=== PATIENT | female | born 1965 | race Caucasian/White ===

== ENCOUNTER 2025-07-08 05:51 | Inpatient (IN) ==
--- NOTE | 2025-06-19 14:01 | PAT Medication Instructions ---
Medication Instructions Date of Service June 19, 2025 Home Medications Medication Instructions Recorded fluconazole 150 mg tablet 150 mg PO Q3D 3 doses #3 tabs 06/12/25 cyanocobalamin (vitamin B-12) 50 mcg tablet 50 mcg PO QAM ibuprofen 200 mg tablet 800 mg PO QAM Pain magnesium 250 mg tablet 250 mg PO DAILY Women's 50 Plus Multivitamin 1 tab PO QAM semaglutide 1 mg/dose (4 mg/3 mL) subcutaneous pen injector 0.5 mg subcut Q7D zinc 100 mg tablet 100 mg PO QAM atorvastatin 40 mg tablet 40 mg PO DAILY fluconazole 150 mg tablet 150 mg PO Q3D 3 doses Essential Enzyme 2 - 3 tab PO QAM Oregano-Flax Seed Tincture 1 tsp PO QAM cholecalciferol (vitamin D3) 125 mcg (5,000 unit) tablet (Vitamin D3) 125 mcg PO QAM losartan 50 mg tablet 50 mg PO QAM ondansetron 4 mg disintegrating tablet 4 mg PO Q8H PRN Nausea Continue as directed fluconazole 150 mg tablet 150 mg PO Q3D 3 doses ASK your surgeon for instructions ibuprofen 200 mg tablet 800 mg PO QAM Pain STOP 7 days prior to surgery semaglutide 1 mg/dose (4 mg/3 mL) subcutaneous pen injector 0.5 mg subcut Q7D STOP taking 2 weeks before surgery (or as soon as possible if surgery is within 2 weeks) Essential Enzyme 2 - 3 tab PO QAM Oregano-Flax Seed Tincture 1 tsp PO QAM DO NOT take the morning of surgery cyanocobalamin (vitamin B-12) 50 mcg tablet 50 mcg PO QAM magnesium 250 mg tablet 250 mg PO DAILY Women's 50 Plus Multivitamin 1 tab PO QAM zinc 100 mg tablet 100 mg PO QAM cholecalciferol (vitamin D3) 125 mcg (5,000 unit) tablet (Vitamin D3) 125 mcg PO QAM losartan 50 mg tablet 50 mg PO QAM Take morning of surgery With a small sip of water, OTHERWISE NOTHING TO EAT OR DRINK AFTER MIDNIGHT: atorvastatin 40 mg tablet 40 mg PO DAILY ondansetron 4 mg disintegrating tablet 4 mg PO Q8H PRN Nausea (if needed) Take evening before surgery ondansetron 4 mg disintegrating tablet 4 mg PO Q8H PRN Nausea (if needed) Other Notes If you have any questions please call us at [phone] or [phone] or [phone] or [phone]
--- NOTE | 2025-06-24 11:11 | Anesthesiology Consultation ---
Date of Service June 24, 2025 Assessment & Plan (1) Encounter for pre-operative examination: - Infectious disease screening: Per assessment on 06/24/25- No known recent infectious disease contacts or current infectious disease symptoms. - GLP-1 medication instructions: Patient informed by PAT to stop 7 days prior to surgery- voiced understanding. DOS 07/08. Advised last dose to be 07/01. - S/P Removal of sacral neuromodulator device (02/26/25): MAC at [facility]. No issues noted per post-op anesthesia progress note. - Acceptable risk for surgery pending surgeon-ordered PCP preop evaluation (SREEKANTHG, appt 07/02). Chart Review Chart Review: Patient seen in Pre Admission Testing Teaching & Discussion Pre-Anesthesia Teaching/Discussion Notes: Instructed NPO after midnight before surgery,except medications with 15 cc of water. Medication instructions provided according to the PAT guidelines. History Surgery Operation Date: 07/08/25 07:45 Proposed Procedures p L2-L3 Decompression and Fusion Connecting to Previous Hardware - Brian Gray DO Height/Weight Height: 5 ft 4 in Weight: 74.6 kg Allergies Allergy/AdvReac Type Severity Reaction Status Date / Time morphine Allergy Severe Vomiting Verified 06/13/25 08:15 Sulfa (Sulfonamide Allergy Unknown Unknown Verified 06/13/25 08:15 Antibiotics) Medications Home Medications Medication Instructions Recorded Confirmed Last Taken cyanocobalamin (vitamin B-12) 50 50 mcg PO QAM 01/18/25 06/13/25 02/25/25 08:00 mcg tablet ibuprofen 200 mg tablet 800 mg PO QAM Pain 01/18/25 06/13/25 02/25/25 08:00 magnesium 250 mg tablet 250 mg PO DAILY 01/18/25 06/13/25 02/26/25 08:00 xxkmefic-wpv-eovxi ac 400 1 tab PO QAM 01/18/25 06/13/25 02/25/25 08:00 mcg-calcium carb 500 mg-vit K1 20 mcg tablet (Women's 50 Plus Multivitamin) semaglutide 1 mg/dose (4 mg/3 mL) 0.5 mg subcut Q7D 01/18/25 06/13/25 02/19/25 08:00 subcutaneous pen injector zinc 100 mg tablet 100 mg PO QAM 01/18/25 06/13/25 02/25/25 08:00 atorvastatin 40 mg tablet 40 mg PO DAILY 03/18/25 06/13/25 Unknown fluconazole 150 mg tablet 150 mg PO Q3D 3 doses #3 tabs 06/12/25 06/13/25 Unknown Essential Enzyme 2 - 3 tab PO QAM 06/13/25 06/13/25 Unknown Oregano-Flax Seed Tincture 1 tsp PO QAM 06/13/25 06/13/25 Unknown cholecalciferol (vitamin D3) 125 125 mcg PO QAM 06/13/25 06/13/25 Unknown mcg (5,000 unit) tablet (Vitamin D3) losartan 50 mg tablet 50 mg PO QAM 06/13/25 06/13/25 Unknown ondansetron 4 mg disintegrating 4 mg PO Q8H PRN Nausea 06/13/25 06/13/25 Unknown tablet Past Medical History Medical History (Updated 06/24/25 @ 12:45 by Frieda Francois) Anxiety attack Hx, Rare episodes Chronic back pain Chronic eczematoid otitis externa of both ears Follows with ENT; "no recent issues" Chronic neck pain Dyslipidemia History of neuropathy History of right shoulder fracture 05/2024, was thought to be healed but patient states she was notified 12/2024 at ortho visit that there might be residual fracture injury but no plan for upcoming surgical intervention; medically managing HLD (hyperlipidemia) HTN (hypertension) Lumbar spinal stenosis Transient visual loss of right eye Intermittent episodes since Spring 2024 Per [place] PCP visit 03/2025- "No obvious cause of her visual complaints has been identified yet. She reports ophthalmology evaluation is negative. Carotid artery ultrasound negative. Brain MRI negative. I do not have a good explanation for her transient visual complaints. Will refer to neurology patient request." [place] Neuro visit scheduled 07/2025. Urinary incontinence Vertigo Exercise / Class Metabolic Activity III < 4 Walking/Shop/Light housework Past Family History Family History Denies family history of Ovarian cancer Prostate cancer Myocardial infarction Breast cancer Colorectal cancer Past Surgical History Surgical History H/O neck surgery x2, C1-4 > C1-C7 Most recent surgery ~2006 H/O wrist surgery Left, "only had to have a temporary pin for 6 days" History of anesthesia reaction "Woke up during every surgery" except more recent anesthesia/surgery when hx was known Tried to remove ET tube during surgery once History of back surgery L1-L4 hardware, most recent surgery 2016 History of colonoscopy with polypectomy History of surgery Removal of sacral neuromodular device 02/26/25: MAC at [facility] Hx of eye surgery Right Hx of hernia repair x2 Status post cholecystectomy Status post insertion of nerve stimulator + subsequent removal Status post right foot surgery Past Anesthesia History No Family Hx of Anesthesia Complications and Other ("Woke up during every surgery" except more recent anesthesia/surgery when hx was known; Tried to remove ET tube during surgery once) History of PONV No Hx of PONV and No Hx of Motion Sickness Social History Smoking Status: Current every day smoker Smoking cigarettes per day: Vapes daily; no cigs Do You Dip or Chew Tobacco: No Hx Alcohol Use: Yes alcohol intake frequency: holidays/special occasions only Hx Substance Use: Yes substance use type: marijuana (medical card; occasional gummy very) and crack/cocaine ("many years ago, cocaine"; has med card-uses occasionally) Review of Systems Patient denies chest pain, shortness of breath, dyspnea on exertion, fever, chills, cough, wheezing, palpitations. Physical Exam Vital Signs BP 152/94 P 73 TEMP 98.1 SP02 98%RA RESP 16 Physical Full cervical extension range of motion. Full TMJ range of motion. TMD > 3.5 finger breaths Mallampati Score I Dentition: upper front (right) implant, + side cap, missing left upper side Lungs: clear throughout to auscultation Cardiac: regular rate and rhythm, no murmurs noted Spine: normal Carotid arteries: negative bruit Extremities: no LE edema Lab Results Anesthesia Preop Results Results Anesthesia Widget: WBC 8.91 K/ul (4.8-10.8) 06/24/25 Hgb 13.6 g/dl (12.0-16.0) 06/24/25 Hct 41.4 % (37.0-47.0) 06/24/25 Plt 492 K/uL (130-400) H 06/24/25 Na 139 mmol/L (136-145) 06/24/25 K 4.2 mmol/L (3.5-5.1) 06/24/25 Cl 104 mmol/L (98-107) 06/24/25 CO2 26 mmol/L (21-32) 06/24/25 BUN 16 mg/dl (6-23) 06/24/25 Creat 0.65 mg/dl (0.6-1.2) 06/24/25 Glucose Level 92 mg/dl (70-99(Fasting)) 06/24/25 PT 10.3 Seconds (9.0-12.0) 06/24/25 PTT 25 Seconds (21-31) 06/24/25 INR 1.0 (0.9-1.1) 06/24/25 Urine Color Yellow 06/24/25 Urine Appearance Clear (Clear) 06/24/25 Urine pH 5.5 (4.5-7.5) 06/24/25 Urine Specific Norris 1.024 (1.000-1.030) 06/24/25 Urine Protein 1+ (Negative) H 06/24/25 Urine Glucose (UA) Negative (Negative) 06/24/25 Urine Ketones Negative (Negative) 06/24/25 Urine Blood 2+ (Negative) H 06/24/25 Urine Nitrite Negative (Negative) 06/24/25 Urine Bilirubin Negative (Negative) 06/24/25 Urine Urobilinogen Negative (Negative) 06/24/25 Urine Leukocyte Esterase Negative (Negative) 06/24/25 Urine WBC (Auto) 0-5 /hpf (0-5) 06/24/25 Urine RBC (Auto) 3-5 /hpf (0-2) H 06/24/25 Urine Hyaline Casts (Auto) 0-2 /lpf (0-2) 06/24/25 Urine Epithelial Cells (Auto) 0-2 /hpf (0-2) 06/24/25 Urine Bacteria (Auto) None Seen (None Seen) 06/24/25 Blood Type O Positive 06/24/25 Antibody Screen NEGATIVE 06/24/25 Testing Laboratory Results Urine culture 06/12/25: Probable skin dipak Electrocardiogram Date: 02/26/25 NSR at 65bpm. Possible LAE. Chest X-Ray Date: 02/13/25 FINDINGS: Heart size and pulmonary vasculature are normal. No consolidation or pleural effusion. There is cervical spine metallic fusion. IMPRESSION: No acute findings. Other Testing Carotid doppler Date: 01/08/25 IMPRESSION: 1. No hemodynamically significant stenosis or significant atherosclerotic plaquing. 2. Normal antegrade vertebral flow bilaterally. Brain MRI Date: 04/18/25 IMPRESSION: No acute intracranial abnormality is identified.
[2025-07-08] MEDS: CeleBREX 200 MG CAP PO SCH (06:25)
[2025-07-08] MEDS: GABAPENTIN 600 MG DOSE PO SCH (06:26)
[2025-07-08] MEDS: ACETAMINOPHEN 500 MG TAB PO SCH (06:26)
[2025-07-08] MEDS: LR 15ML/HR IV SCH (06:27)
[2025-07-08] MEDS ORDERED: DEXAMETHASONE SOD INJ 4 MG/ML VIAL ONE (06:57)
[2025-07-08] MEDS ORDERED: ONDANSETRON INJ 2 MG/ML 2 ML VIAL IV PRN (06:58)
[2025-07-08] MEDS ORDERED: HYDROmorphone INJ 1 MG/ML SYRINGE IV PRN (06:58)
[2025-07-08] MEDS ORDERED: KETAMINE HCL 10MG/ML SYR ONE (06:58)
[2025-07-08] MEDS ORDERED: MIDAZOLAM HCL 1 MG/ML 2ML VIAL ONE (06:58)
[2025-07-08] MEDS ORDERED: PROPOFOL IV EMULSION 10 MG/ML 20 ML VIAL IV ONE (06:58)
[2025-07-08] MEDS ORDERED: ROCURONIUM BROMIDE 10 MG/ML 5 ML VIAL IV ONE (06:58)
[2025-07-08] MEDS ORDERED: ONDANSETRON INJ 2 MG/ML 2 ML VIAL ONE (06:58)
[2025-07-08] MEDS ORDERED: LIDOCAINE 2% 2 ML VIAL/AMP(20MG/ML) INFIL ONE (06:58)
[2025-07-08] MEDS ORDERED: ATROPINE SULFATE 0.1 MG/ML 10ML SYR IV PRN (06:58)
[2025-07-08] MEDS ORDERED: DexMEDEtomidine HCL IV 100 MCG/ML VIAL IV ONE (07:09)
[2025-07-08] MEDS ORDERED: SUGAMMADEX SODIUM 200 MG/2 ML VIAL IV ONE (07:09)
[2025-07-08] MEDS ORDERED: GLYCOPYRROLATE 0.2 MG/ML VIAL ONE (07:09)
--- NOTE | 2025-07-08 07:39 | History & Physical Bridge Note ---
Date of Service July 08, 2025 History & Physical Bridge Note I have examined the patient, reviewed the History & Physical and in the interval since the performance of the History & Physical I have noted the following changes of clinical significance: no changes noted
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
[2025-07-08] MEDS ORDERED: HYDROmorphone INJ 2 MG/ML SYR/VIAL ONE (08:07)
[2025-07-08] MEDS: ceFAZolin 330 MG/ML 1 GM VIAL ONE (08:31)
[2025-07-08] MEDS: BUPIVACAINE/EPINEPHRINE 0.25% 1:200,000 30 ML VIAL ONE (08:31)
[2025-07-08] MEDS ORDERED: PHENYLEPHRINE 100MCG/ML 5ML SYR ONE (08:34)
[2025-07-08] MEDS: FLOSEAL HEMOSTATIC MATRIX 10ML TOP ONE (09:37)
--- NOTE | 2025-07-08 09:43 | Operative Report ---
Post Operative Report Pre & Post Diagnosis Operation Date: 07/08/25 07:45 Pre-Op Diagnosis: #1 lumbar spondylosis with radiculopathy #2 lumbar spinal stenosis Post-Op Diagnosis: Same I identified the patient and participated in the time-out.: Yes Procedure Operation Date: 07/08/25 07:45 Actual Procedures #1 removal of posterior instrumentation L3-L5. #2 exploration of fusion L3-L5 #3 lumbar decompression with bilateral medial facetectomies and foraminotomies L1-L2 L2-L3. #4 posterior spinal fusion L2-L3. #5 placement of posterior instrumentation L2-L5 using Luevano. #6 interbody fusion L2-L3. #7 placement of Spira 10 x 26 mm at L2-L3. #8 placement of Koros combined with Proteus bone graft in the posterior lateral gutters and os design interbody space. #9 application of versa wrap of the exposed dura. Surgeon Brian Gray, DO Functional Skills Tutor Selina Fernandez Estimated Blood Loss 150 Findings See Below Patient had significant epidural scarring from the previous decompression. This created marked technical difficulty with decompressing the adjacent level. This had at least 40% increased operative time. I am recommending modifier 22. Specimens None Indications This is a 60-year-old female who presents publish diagnosis after failing course of nonoperative care she is here for surgical invention. Description of Procedure Patient was met with identified informed consent obtained. Patient was then taken to the operative suite underwent the patient placed in a prone position on the Robert table atop the Navid frame. All bony promises well-padded eyes inspected to ensure no external pressure placed upon them. This point the lumbar spine was prepped and draped in the normal sterile fashion. Sharp dissection with the assistance of Bovie cautery was performed down to and exposing the lamina and transverse processes of L2 and the instrumentation at L3-L4-L5 bilaterally. I then proceeded to remove the hardware bilaterally explored the fusion mass noting it to be mature and intact. I then performed a complete laminectomy of L2 with bilateral medial facetectomies and foraminotomies encountering significant epidural scarring and adhesions adding significant time for this portion procedure. This was followed by partial horace ectomy of L1 with bilateral medial facetectomies to address all subarticular stenosis. Pedicle screws were then placed in L2-L3 L5 bilaterally with assistance of fluoroscopy and appropriate size suzi placed. By way of transforaminal approach on the right a complete discectomy of L2-L3 was performed endplates corrected to subcortical bleeding bone and a 10 x 26 mm Spira cage filled with os design bone graft tapped in position. The rods were then locked in final position bilaterally. The transverse processes of L2-L3 burred to subcortically bone. Koros combined with Proteus was placed in the posterior gutters. Versa wrap placed over the exposed dura. 15 round RODRI drain inserted. The incision was then closed with 1 Vicryl in the fascia 2-0 Vicryl subcutaneously and 4 Monocryl for final skin closure. Steri-Strips sterile dressing placed. Patient waken taken to PACU in stable condition. Please note Selina Fernandez was present of the entire procedure and on the patient positioning complex portion of the surgery and final skin closure. I attest to the content of the Intraoperative Record and any orders documented therein. Any exceptions are noted below.
[2025-07-08] MEDS ORDERED: ALBUTEROL HFA 8 GM INHALER INH ONE (10:32)
--- NOTE | 2025-07-08 10:32 | Anesthesiology Progress Note ---
Date of Service July 08, 2025 Anesthesia Post Procedure Vital Signs Vital Signs: Temp Pulse Resp BP BP Pulse Ox O2 Del Method 07/08/25 10:25 36.5 C 86 15 129/68 95 Nasal Cannula 07/08/25 10:15 76 15 128/70 97 Oxymask 07/08/25 10:05 85 20 117/92 100 Oxymask 07/08/25 09:56 36.4 C L 84 15 145/75 H 99 Oxymask 07/08/25 06:41 184/108 H 07/08/25 06:27 36.7 C 71 20 178/115 H 199/106 H 98 Room Air O2 Flow Rate 07/08/25 10:25 2 07/08/25 10:15 2 07/08/25 10:05 6 07/08/25 09:56 11 07/08/25 06:41 07/08/25 06:27 Pain Intensity Bilateral Hip: Pain Intensity: 6 Back: Pain Intensity: 3 Transfer of Care Handoff Completed per policy Notes Mental Status: alert / awake / arousable Patient Amnestic to Procedure: Yes Nausea / Vomiting: adequately controlled Pain: adequately controlled Airway Patency, RR, SpO2: stable & adequate BP & HR: stable & adequate Hydration State: stable & adequate Anesthetic Complications: no major complications apparent and Pt Satisfied with anesthetic care
[2025-07-08] MEDS ORDERED: PHENYLEPHRINE HCL 10 MG/ML VIAL ONE (10:36)
--- NOTE | 2025-07-08 10:46 | Fluoroscopy Report ---
FL lumbar spine 2-3V CLINICAL HISTORY: L2-L3 DECOMPRESSION AND FUSION COMPARISON STUDY: None FLUOROSCOPY TIME: 10 seconds FLUOROSCOPY IMAGES: 3 EXPOSURE DOSE: 7 mGy FINDINGS: Fluoroscopy was provided for lumbar surgery. IMPRESSION: Intraoperative fluoroscopy. ACT 112: Negative or not required by law. Electronically signed by: Artemio Padilla M.D. 07/08/2025 10:45 AM
[2025-07-08] MEDS ORDERED: ALUMINUM/MAGNESIUM SUSP 30 ML UDC PO PRN (12:22)
[2025-07-08] MEDS ORDERED: AMITRIPTYLINE HCL 10 MG TAB PO PRN (12:22)
[2025-07-08] MEDS ORDERED: ACETAMINOPHEN 1,000 MG/100 ML VIAL IV PRN (12:22)
[2025-07-08] MEDS ORDERED: NALOXONE HCL 0.4 MG/1 ML VIAL/CARP IV PRN (12:22)
[2025-07-08] MEDS ORDERED: METOCLOPRAMIDE HCL INJ 5 MG/ML 2 ML VIAL IV PRN (12:22)
[2025-07-08] MEDS ORDERED: diphenhydrAMINE Capsule 25 MG CAP PO PRN (12:22)
[2025-07-08] MEDS ORDERED: MAGNESIUM HYDROXIDE SUSP 30 ML UDC PO PRN (12:22)
[2025-07-08] MEDS ORDERED: DO NOT ADMINISTER PNEUMOCOCCAL VACCINE PRN (12:22)
[2025-07-08] MEDS ORDERED: ONDANSETRON 4 MG OD TAB PO PRN (12:22)
[2025-07-08] MEDS ORDERED: FAMOTIDINE 20 MG TAB PO PRN (12:22)
[2025-07-08] MEDS ORDERED: ACETAMINOPHEN 500 MG TAB PO PRN (12:22)
[2025-07-08] MEDS ORDERED: SOD PHOSPHATE/SOD BIPHOSPHATE ENEMA 132 ML BTL PR PRN (12:22)
[2025-07-08] MEDS ORDERED: DO NOT ADMINISTER FLU VACCINE PRN (12:22)
[2025-07-08] MEDS ORDERED: LORazepam Inj 0.5 MG in SYRINGE 0.25 ML IV PRN (12:22)
[2025-07-08] MEDS ORDERED: PROMETHAZINE 12.5 MG/50.5 ML BAG IV PRN (12:22)
[2025-07-08] MEDS: LACTATED RINGER'S 1,000 ML IV SCH (12:57)
[2025-07-08] MEDS: LR 60ML/HR IV SCH (13:11)
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
[2025-07-08] MEDS: HYDROmorphone INJ 0.5 MG/0.5 ML SYR IV PRN (14:16)
[2025-07-08] MEDS: HYDROmorphone INJ 1 MG/ML SYRINGE IV PRN (18:58)
[2025-07-08] MEDS: ONDANSETRON INJ 2 MG/ML 2 ML VIAL IV PRN (19:23)
[2025-07-08] MEDS: GABAPENTIN 600 MG TAB PO SCH (20:26)
[2025-07-08] MEDS: DOCUSATE SODIUM/SENNA 50/8.6MG TAB PO SCH (20:26)
[2025-07-08] MEDS: COUGH DROP (SUGAR FREE) LOZ 24 LOZ/1 BOX BUCCAL ONE (23:51)
[2025-07-09] MEDS: POLYETHYLENE (MIRALAX) 17 GM PACK PO SCH (06:02)
[2025-07-09 06:41] LABS: Hematocrit (blood only) 30.3 % (37.0-47.0); Hemoglobin 10.2 g/dl (12.0-16.0); Immature Granulocytes # (auto) 0.05 K/uL (0.01-0.20); Immature Granulocytes % (auto) 0.4 %; Mean Corpuscular Hemoglobin 30.9 pg (25.0-34.0); Mean Corpuscular Volume 91.8 fL (80.0-100.0); Platelet Count 325 K/uL (130-400); RDW Standard Deviation 47.0 fL (36.4-46.3); Red Blood Count 3.30 M/uL (4.20-5.40); White Blood Count 12.28 K/ul (4.8-10.8)
[2025-07-09 06:58] LABS: Anion Gap 7.0 (3-11); Blood Urea Nitrogen 11.0 mg/dl (6-23); Calcium 9.0 mg/dl (8.6-10.3); Carbon Dioxide 29.0 mmol/L (21-32); Chloride 100.0 mmol/L (98-107); Creatinine Clr Calc Pharmacy 42.8 ml/min; Glucose 117.0 mg/dl (70-99(Fasting)); Potassium 3.4 mmol/L (3.5-5.1); Sodium 136.0 mmol/L (136-145)
[2025-07-09 07:52] VITALS: RESP 18
[2025-07-09] MEDS: POTASSIUM CHLORIDE CRTAB 20 MEQ TABCR PO STA (08:11)
[2025-07-09] MEDS: ATORVASTATIN 40 MG TAB PO SCH (08:12)
[2025-07-09] MEDS: MAGNESIUM OXIDE 400 MG TAB PO SCH (08:12)
[2025-07-09] MEDS: dexAMETHasone 6 MG in SYRINGE 0 ML IV SCH (08:12)
[2025-07-09] MEDS: CYANOCOBALAMIN (B-12) 100 MCG TABLET PO SCH (08:12)
[2025-07-09] MEDS: ZINC SULFATE 220 MG CAPSULE PO SCH (08:13)
[2025-07-09] MEDS: MULTIVITAMIN TAB PO SCH (08:13)
[2025-07-09] MEDS: CHOLECALCIFEROL 125 MCG (5,000 UNITS) TAB PO SCH (08:13)
[2025-07-09] MEDS: LOSARTAN POTASSIUM 50 MG TAB PO SCH (09:36)
--- NOTE | 2025-07-09 11:17 | Orthopedic Progress Note ---
Date of Service July 09, 2025 Assessment & Plan (1) Other spondylosis with radiculopathy, lumbar region: Plan: At this time we will continue with physical therapy monitor RODRI operatively discharge home in the next few days. Admission and Anticipated Discharge Date Admission Date: July 08, 2025 Subjective Patient's back pain is controlled leg symptoms improved. She is tolerating physical therapy. Physical Exam Physical Exam: Patient is in a chair at the bedside. She is comfortable. Good strength testing. Results & Data Vital Signs (Past 12 Hours) Vital Signs Temp Pulse Resp BP Pulse Ox O2 Del Method 07/09/25 08:00 Room Air 07/09/25 07:52 37.1 C 70 18 157/90 H 97 Room Air 07/09/25 06:03 36.7 C 74 16 161/102 H 98 Room Air
--- NOTE | 2025-07-09 11:35 | Hospitalist Progress Note ---
Date of Service July 09, 2025 Assessment & Plan (1) Other spondylosis with radiculopathy, lumbar region: (2) HTN (hypertension): (3) Lumbar spinal stenosis: (4) HLD (hyperlipidemia): Plan This is a 60 year old female with past medical history of HTN, HLD, and obesity who presented to the hospital for an elective surgery with Dr. Gray on 07/08/2025. The hospitalist service was consulted for medical management. #Lumbar spinal stenosis s/p spinal surgery with Dr. Gray on 07/08/2025. diet, pain management, PT/OT, DVT prophylaxis, and discharge planning per primary team. Mildly low K 07/09 at 3.4, s/p 20meq to replete. #HTN compliant w/ medications at home, regimen includes Losartan 100mg daily - continue #HLD - continue statin #Chronic pain - continue gabapentin DVT prophylaxis: per primary team Code: full At this time our hospitalist team will sign off. Please call us back with questions or concerns. Admission and Anticipated Discharge Date Admission Date: July 08, 2025 Supervising Physician Co-Signing Physician Notes The patient was not seen by me. The chart was reviewed. Case discussed with ORI Heck. Agree with assessment and plan Subjective Ace was seen & examined this morning. Reports she is doing well post- operatively. She states that she has been able to walk. Reports her pain is not severe and feels muscle related to her surgery. She states she is looking forward to discussing a possible neck surgery with Dr. Gray in the future. She did note she threw up her breakfast this morning but states that is normal for her following anesthesia & surgery. She was eating a chocolate bar at time of my encounter. She reports she believes she is going home tomorrow. Physical Exam Physical Exam: General: NAD, VS: BP 157/90; P70; R18; T31.7C Resp: normal respiratory effort Extremities: Moves all extremities, no edema Neuro: A&O x3 Skin: intact, no lesions noted Results & Data Results & Data Vital Signs (Past 12 Hours) Vital Signs Temp Pulse Resp BP Pulse Ox O2 Del Method 07/09/25 08:00 Room Air 07/09/25 07:52 37.1 C 70 18 157/90 H 97 Room Air 07/09/25 06:03 36.7 C 74 16 161/102 H 98 Room Air PG Care Time/CCT Total # of Minutes Spent Total Time Spent with Patient: Total time spent is greater than 50% in coordination of care (as documented) at patient's floor/unit and/or counseling patient: Coding Level of Care Code 10470 SUB INP/OBS CARE 2/35MIN Diagnoses Other spondylosis with radiculopathy, lumbar region M47.26 HTN (hypertension) I10 Lumbar spinal stenosis M48.061 HLD (hyperlipidemia) E78.5
[2025-07-09 23:18] VITALS: O2SAT 96
[2025-07-10] MEDS: LORazepam 0.5 MG TAB PO PRN (00:12)
[2025-07-10 07:40] VITALS: TEMP 98.2
--- NOTE | 2025-07-10 10:01 | Discharge Summary ---
Date of Service July 10, 2025 Admission HPI Per Admitting Provider This is a 60-year-old female presents chronic persistent back and leg pain and failed course of nonoperative care is here for surgical invention. Principal Diagnosis Lumbar spondylosis with radiculopathy Discharge Data Allergies Allergy/AdvReac Type Severity Reaction Status Date / Time morphine Allergy Severe Vomiting Verified 07/08/25 06:12 Sulfa (Sulfonamide Allergy Unknown Unknown Verified 07/08/25 06:12 Antibiotics) Consultations 07/08/25 12:22 Consult Hospitalist Routine Procedures Performed Operation Date: 07/08/25 07:45 Actual Procedures p L2-L3 Decompression, L2-L5 Fusion,(Not Applicable) - Brian Gray DO s Hardware removal L3-L5(Not Applicable) - Brian Gray DO Ordered Studies 07/08/25 07:45 FL lumbar spine 2-3V Routine Hospital Course (1) Other spondylosis with radiculopathy, lumbar region: Patient with lumbar decompression fusion tolerated well strength orthopedic for postoperative postoperatively progressed appropriate. Marked preoperative leg pain RODRI drain decreasing. Extra strength testing. Subsidy discharged home. Discharge orders instructions found in chart for further review. Total Time Total Time Spent Total Time Spent (In Minutes): 20 minutes Discharge Plan Discharge Items Patient Disposition: Home - Self-Care Reason For Visit: Single-Level Lumbosacral Spondylosis with Radiculo Discharge Diagnosis: Lumbar spondylosis with radiculopathy Activity: As commented below Non-emergency contact: Primary Care Provider Call non-emergency contact if: you have any medication questions Follow-up/Referrals: Vincent Hart DO [Primary Care Provider] - Diet: Regular Addtl Attending Provider Instructions: ACTIVITY RECOMMENDATIONS: SELF CARE INSTRUCTIONS AFTER THORACIC/LUMBAR FUSIONS 1. You may walk to your tolerance. It is good exercise for your legs and back. Expect some back and intermittent leg aches and pains. 2. You may perform "counter-top" level activities (make a sandwich, ricky with a project, etc.). 3. No bending or lifting of more than 10 pounds or back twisting of any nature (roll like a log when turning in bed). 4. You may ride in a car for 20-30 minutes at a time. No driving until after your first visit with your doctor. 5. Frequent changes of position and restricting sitting to 30 minutes at a time will help limit the amount of back spasms and stiffness you may experience. 6. You may discontinue the use of ambulatory aids (cane, crutches, etc.) once your strength and confidence allow. 7. You may casting director the shower and let water strike your incision when you arrive home at least once daily. Do not take a tub bath, sit in a hot tub or go into a swimming pool until after your first recheck in the office. 8. You may resume previous diet. SPECIAL CARE INSTRUCTIONS: VERY IMPORTANT TO READ AND REVIEW A. Your surgical incision has been closed with a cosmetic suture under the skin that will dissolve in about 6 weeks. In 14 days, you can use a pair of clean scissors and cut the suture that is left outside of the skin at the ends of your incision. 1. The small skin tapes can be removed 7 days after surgery if they have not fallen off by that point. 2. You may keep the wound open to air as much as possible to promote healing after post-op day number 5 unless told otherwise by your doctor. 3. If you think the wound looks like it is becoming infected (redness or worsening drainage) and/or you are experiencing fever, chill or worsening back pain and muscle spasms, contact the office so that we may evaluate you as soon as possible. B. Complications are uncommon, but please contact us if you have any signs or symptoms of: 1. wound infection (fever higher than 102.5 degrees F, redness, separation of wound, drainage, or increasing pain from the incision) 2. blood clots in legs (pain, swelling, redness and warmth in legs) 3. urinary tract infection (fever higher than 102.5 degrees F, burning upon urination or increased frequency of urination) 4. nerve problems (inability to walk on your toes or heels, numbness, loss of bowel or bladder control) 5. any other symptoms that concern you C. Please call the office at if you have any concerns or questions about your operation or recovery. D. No smoking! Smoking drastically decreases the chance of a solid fusion. E. Do not take any anti-inflammatory medications (Indocin, Advil, Motrin, Aspirin, Naprosyn, etc.) as these may inhibit the chance of a solid fusion. Tylenol is okay to take for pain. MANAGING PAIN AFTER SPINAL SURGERY 1. Narcotic medication is intended for short-term use and will be provided for surgical pain. Surgical pain usually lasts for a period of 4-6 weeks. Narcotic medication includes Percocet, Vicodin, Darvocet, Tylenol #3 or Lortab. 2. Longer-term pain is more appropriately treated with non-narcotic medication such as Tylenol ES. 3. Muscle spasm is not appropriately treated with narcotics. Muscle relaxers such as Soma, Flexeril or Skelaxin can be used along with Tylenol ES. 4. Remember that we all live with some "aches and pains". This is not unusual or uncommon after an injury or as we get older. a. Back pain is expected and may include muscle spasms for 4 to 6 weeks after surgery. The pain should gradually improve. If the pain worsens for no apparent reason, please contact the office. b. Intermittent leg pain may also be experienced and should not be concerned about unless it worsens for no apparent reason. If so, please contact the office. 5. We will provide appropriate medication within the normal guidelines of their prescribed use. We will also be very cautious and aware of potential abuse and extended duration of patients' medication needs. a. Pain medications are for your comfort and to assist with sleep and rest so that the tissue can heal. They are not provided in order to return to normal activity and should not be used through the day. To do so or worsening pain at night can result from ongoing tissue damage and development of tolerance to the prescribed medicine. 6. Please allow 2-3 days to process refills. Prescriptions will not be mailed but must be picked up at the office. FOLLOW UP VISIT: Keep your scheduled follow-up appointment. Any questions, please call the office at . Pending Studies at Discharge: No Stand-Alone Forms: My [employer], Smoking Cessation Medications and DC Order Prescriptions: New tramadol 50 mg tablet 50 mg PO Q6H PRN (Reason: pain, moderate) Qty: 30 0RF oxycodone 5 mg tablet 5 mg PO Q6H PRN (Reason: pain) Qty: 30 0RF Rx Instructions: Oxycodone for severe pain tramadol for moderate pain Continued atorvastatin 40 mg tablet 40 mg PO DAILY Patient Comments: 06/13/25-"has not been taking recently, PCP aware" losartan 50 mg tablet 100 mg PO QAM gabapentin 300 mg capsule 600 mg PO BID Qty: 60 0RF nystatin 100,000 unit/gram cream 1 applic topical QID 14 Days Qty: 30 3RF Oregano-Flax Seed Tincture 1 tsp PO QAM ondansetron 4 mg Tablet,Disintegrating 4 mg PO Q8H PRN (Reason: Nausea) cholecalciferol (vitamin D3) [Vitamin D3] 125 mcg (5,000 unit) tablet 250 mcg PO QAM amitriptyline 10 mg tablet 10 mg PO DAILY PRN (Reason: Anxiety) marshmallow root 480 mg Capsule 480 mg PO DAILY Marijuana Gummies 0.5 gummy PO HS PRN (Reason: Sleep) zinc 100 mg Tablet 100 mg PO QAM cyanocobalamin (vitamin B-12) 50 mcg Tablet 50 mcg PO QAM magnesium 250 mg Tablet 250 mg PO DAILY Women's 50 Plus Multivitamin 400 mcg-500 mg calcium-20 mcg Tablet 1 tab PO QAM semaglutide 1 mg/dose (4 mg/3 mL) Pen Injector 0.5 mg SUBCUT Q7D Patient Comments: wednesdays Discharge Orders: Discharge Order (Routine); Ordered 07/10/25 Ordered By: Brian Gray Admission Data Admit Date/Time: 07/08/25 09:48 Attending Provider: Brian Gray Admit Provider: Brian Gray Primary Care Provider: Vincent Hart Other Providers: Jesus Pinto
[2025-07-10 10:41] VITALS: BP 163/87; PULSE 86
== END 2025-07-10 12:32 | disposition home or self-care (01) | DRG 402 ==
LOC: ASU 05:51 → PACUINP 09:48 → 3E 12:18